=== PATIENT | female | born 1960 | race Caucasian/White ===

== ENCOUNTER 2024-09-06 20:36 | Emergency (ER) | payer MEDICARE, OTHER ==
[2024-09-06 20:57] VITALS: TEMP 97.1; O2SAT 97
--- NOTE | 2024-09-06 21:06 | ERPHSYRPT ---
- History of Present Illness Time Seen by Provider: 09/06/24 20:59 Source: patient Exam Limitations: no limitations Physician History: 63-year-old female presents to our ED for evaluation of pain to her sternum and left sided ribs. Patient states she was descending steps on her deck she missed stepped and fell onto her left side and chest area. No BHT or LOC no neck pain. Cervical spine cleared clinically. Patient's fall occurred today. The fall was mechanical and not associated with any neuro or cardiovascular symptomology. No associated chest pain or shortness of breath. No nausea vomiting or diaphoresis. No numbness tingling or weakness. Pain described as an ache that is worse with movement and palpation. Pain improved somewhat with rest. Patient declined pain medication. Patient denies abdominal pain and extremity discomfort. Patient is ambulatory with a normal gait. Patient reports she otherwise feels well. She voices no other complaints or concerns at this time. Portions of this note were created with voice recognition technology. There may be grammatical, spelling, punctuation or sound alike errors Severity: moderate Associated Symptoms: denies symptoms Allergies/Adverse Reactions: NSAIDS (Non-Steroidal Anti-Inflamma Allergy (Severe, Verified 09/06/24 21:08) Diarrhea Sulfa (Sulfonamide Antibiotics) [Sulfa(Sulfonamide Antibiotics)] Allergy (Sev ere, Verified 09/06/24 21:08) CHOLITIS Home Medications: Citalopram Hydrobromide [ceLEXa] 40 mg PO DAILY 12/19/11 [History] Cyclobenzaprine HCl 10 mg [Flexeril 10 MG] 10 mg PO BID 12/19/11 [History] Propranolol HCl [Inderal 20 MG] 20 mg PO BID 12/19/11 [History] Ranitidine HCl [zanTAC 150 MG TABLET] 150 mg PO DAILY 12/19/11 [History] azaTHIOprine [Imuran] 100 mg PO DAILY 12/19/11 [History] estradioL [Estradiol] 0.5 mg PO DAILY 12/19/11 [History] Levothyroxine Sodium 75 Mcg [Synthroid 75 Mcg] 75 mcg PO DAILY 10/13/15 [History] Oxybutynin Chloride 5 mg PO DAILY 10/13/15 [History] Hx Tetanus, Diphtheria Vaccination/Date Given: Yes Hx Influenza Vaccination/Date Given: No Hx Pneumococcal Vaccination/Date Given: No - Review of Systems Constitutional: No Symptoms, No Fever, No Chills Eyes: No Symptoms Ears, Nose, & Throat: No Symptoms Respiratory: No Symptoms, No Cough, No Dyspnea Cardiac: No Symptoms, No Chest Pain, No Edema, No Syncope Abdominal/Gastrointestinal: No Symptoms, No Abdominal Pain, No Nausea, No Vomiting, No Diarrhea Genitourinary Symptoms: No Symptoms, No Dysuria Musculoskeletal: No Symptoms, No Back Pain, No Neck Pain Skin: No Symptoms, No Rash Neurological: No Symptoms, No Dizziness, No Focal Weakness, No Sensory Changes Psychological: No Symptoms Endocrine: No Symptoms Hematologic/Lymphatic: No Symptoms Immunological/Allergic: No Symptoms All Other Systems: Reviewed and Negative - Past Medical History Pertinent Past Medical History: Yes Neurological History: Migraines ENT History: No Pertinent History Cardiac History: No Pertinent History Respiratory History: No Pertinent History Endocrine Medical History: No Pertinent History Musculoskeletal History: Osteoarthritis GI Medical History: Colitis, GERD History: No Pertinent History Psycho-Social History: Anxiety, Depression Female Reproductive Disorders: No Pertinent History - Past Surgical History Past Surgical History: Yes Neuro Surgical History: No Pertinent History Cardiac: No Pertinent History Respiratory: No Pertinent History Gastrointestinal: No Pertinent History Genitourinary: No Pertinent History Musculoskeletal: No Pertinent History Female Surgical History: Hysterectomy Other Surgical History: nasal surgery, back fx with no surgery - Social History Smoking Status: Never smoker Exposure to second hand smoke: No Drug Use: none Patient Lives Alone: Yes - Nursing Vital Signs Nursing Vital Signs: Initial Vital Signs Temperature 97.1 F 09/06/24 20:37 Pulse Rate 87 09/06/24 20:37 Respiratory Rate 18 09/06/24 20:37 O2 Sat by Pulse Oximetry 97 09/06/24 20:37 Pain Scale Pain Intensity 5 - Physical Exam General Appearance: no apparent distress, alert Eye Exam: PERRL/EOMI, eyes nml inspection Ears, Nose, Throat Exam: normal ENT inspection, TMs normal, pharynx normal, moist mucous membranes Neck Exam: normal inspection, non-tender, supple, full range of motion Respiratory Exam: normal breath sounds, lungs clear, other (Tenderness to palpation left ribs into the left anterior chest and sternum. Overlying soft tissue intact. No signs of trauma no bruising no open or draining lesions no hematomas), No respiratory distress Cardiovascular Exam: regular rate/rhythm, normal heart sounds, normal peripheral pulses Gastrointestinal/Abdomen Exam: soft, normal bowel sounds, No tenderness, No mass Back Exam: normal inspection, normal range of motion, No CVA tenderness, No vertebral tenderness Extremity Exam: normal inspection, normal range of motion, pelvis stable Neurologic Exam: alert, oriented x 3, cooperative, normal mood/affect, nml ce rebellar function, nml station & gait, sensation nml, No motor deficits Skin Exam: normal color, warm, dry, No rash Lymphatic Exam: No adenopathy SpO2: 97 - Course Nursing assessment & vital signs reviewed: Yes EKG Interpreted by Me: RATE (78), Sinus Rhythm, NORMAL AXIS, NORMAL INTERVALS, NORMAL QRS - CT Exams Chest CT Interpretation: Tele-radiologist Report (T11-T12 remote endplate fracture versus Schmorl's node. L1 vertebral hemangioma. 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 09/06/24 20:58 Active EKG-ER Only STAT Care 09/06/24 20:57 Active Pulse Oximetry (ED) STAT Care 09/06/24 20:57 Active CHEST WITHOUT CONTRAST [CT] Stat Exams 09/06/24 20:57 Taken CBC W DIFF Stat Lab 09/06/24 21:10 Completed CMP Stat Lab 09/06/24 21:10 Completed TROPONIN Q4H Lab 09/06/24 21:10 Completed TROPONIN Q4H Lab 09/07/24 01:00 Ordered TROPONIN Q4H Lab 09/07/24 05:00 Ordered Lab/Rad Data: Laboratory Result Diagrams 09/06/24 21:10 09/06/24 21:10 Laboratory Results 09/06/24 09/06/24 09/06/24 Range/Units 21:10 21:10 21:10 WBC 8.4 (3.98-10.04) x10^3/uL RBC 4.37 (3.93-5.22) x10^6/uL Hgb 12.6 (11.2-15.7) g/dL Hct 38.1 (34.1-44.9) % MCV 87.2 (79.4-94.8) fL MCH 28.8 (25.6-32.2) pg MCHC 33.1 (32.2-35.5) g/dL RDW 12.4 (11.7-14.4) % Plt Count 283 (182-369) x10^3/uL MPV 8.7 L (9.4-12.3) fL Gran % 51.8 (34.0-71.1) % Immature Gran % (Auto) 0.7 H (0.001-0.429) % Nucleat RBC Rel Count 0.0 (0.00-0.2) % Eos # (Auto) 0.49 H (0.04-0.36) x10^3/uL Immature Gran # (Auto) 0.06 H (0.001-0.031) x10^3u/L Absolute Lymphs (auto) 2.79 (1.18-3.74) x10^3/uL Absolute Monos (auto) 0.60 (0.24-0.86) x10^3/uL Absolute Nucleated RBC 0.00 (0.00-0.012) x10^3u/L Lymphocytes % 33.4 (19.3-51.7) % Monocytes % 7.2 (4.7-12.5) % Eosinophils % 5.9 H (0.7-5.8) % Basophils % 1.0 (0.1-1.2) % Absolute Granulocytes 4.34 (1.56-6.13) x10^3/uL Basophils # 0.08 (0.01-0.08) x10^3/uL Sodium 140 (135-145) mmol/L Potassium 4.1 (3.5-5.1) mmol/L Chloride 105 (98-107) mmol/L Carbon Dioxide 21 L (22-30) mmol/L Anion Gap 18.7 H (5-15) MEQ/L BUN 14 (7-17) mg/dL Creatinine 0.87 (0.52-1.04) mg/dL Estimated GFR 74.4 ML/MIN Glucose 113 H (74-106) mg/dL Calcium 9.2 (8.4-10.2) mg/dL Total Bilirubin 0.50 (0.2-1.3) mg/dL AST 38 H (14-36) U/L ALT 49 H (0-35) U/L Alkaline Phosphatase 99 (38-126) U/L Troponin I < 0.012 (0.000-0.033) ng/mL Serum Total Protein 7.3 (6.3-8.2) g/dL Albumin 4.7 (3.5-5.0) g/dL - Progress Progress: improved Progress Note: 63-year-old female presents to our ED for evaluation of pain to her left ribs anterior chest wall and sternum. Patient states she fell. Physical exam reveals tenderness to palpation at the left rib and left anterior chest. We screened patient with EKG and troponin. Both are negative. Laboratory workup essentially nonremarkable. CT chest negative for fracture dislocations. No acute pathology observed. Patient resting comfortably. Patient declined pain medication. Patient agrees to follow-up with her primary care doctor within 48 hours. Patient will be discharged to respiratory therapy as she currently has a sleep study scheduled. Plan of care discussed with patient. Patient agrees with our follow-up plans. She voices no other complaints or concerns at this time. Portions of this note were created with voice recognition technology. There may be grammatical, spelling, punctuation or sound alike errors Complexity of problem addressed is moderate acute complicated no critical care time. Complexity of data reviewed and analyzed is moderate. Test ordered chest reviewed results analyzed and correlated clinically with history and physical exam. Risk of complication and or risk of morbidity/mortality of patient management is low. Vital stable. Time spent to discharge patient is approximately 10 minutes. Plan of care established for shared decision making. No social determinants of health present to impede follow-up. Portions of this note were created with voice recognition technology. There may be grammatical, spelling, punctuation or sound alike errors 09/06/24 22:29 Counseled pt/family regarding: lab results, diagnosis, need for follow-up, rad results - Departure Departure Disposition: Home Clinical Impression: Fall, Rib contusion, Chest wall muscle strain Condition: Stable Critical Care Time: No Referrals: HARDIK CHRISTY MD [Primary Care Provider] - Follow up/PCP as directed Instructions: Preventing falls in adults Additional Instructions: Discharge/Care Plan MONTY CHAUDHARY MICHELLE was seen on 09/06/24 in the Emergency Room. The patient was counseled regarding Diagnosis,Lab results, Imaging studies, need for follow up and when to return to the Emergency Room. Prescriptions given: Discharge Note I have spoken with the patient and/or caregivers. I have explained the patient's condition, diagnosis and treatment plan based on the information available to me at this time. I have answered the patient's and/or caregiver's questions and addressed any concerns. The patient and/or caregivers have as good understanding of the patient's diagnosis, condition and treatment plan as can be expected at this point. The vital signs have been stable. The patient's condition is stable and appropriate for discharge from the emergency department. The patient will pursue further outpatient evaluation with the primary care physician or other designated or consulting physician as outlined in the discharge instructions. The patient and/or caregivers are agreeable to this plan of care and follow-up instructions have been explained in detail. The patient and/or caregivers have received these instruction. The patient/and or caregivers are aware that any significant change in condition or worsening of symptoms should prompt an immediate return to this or the closest emergency department or call 911.
[2024-09-06 21:17] LABS: Absolute Neutrophil Ct (ANC) 4.34 x10^3/uL (1.56-6.13); Basophil (Absolute #) 0.08 x10^3/uL (0.01-0.08); Eosinophil % 5.9 % (0.7-5.8); Eosinophil (Absolute #) 0.49 x10^3/uL (0.04-0.36); Hematocrit 38.1 % (34.1-44.9); Hemoglobin 12.6 g/dL (11.2-15.7); IMMATURE GRAN # 0.06 x10^3u/L (0.001-0.031); IMMATURE GRAN % 0.7 % (0.001-0.429); Lymphocyte (Absolute #) 2.79 x10^3/uL (1.18-3.74); Lymphocytes % 33.4 % (19.3-51.7); Mean Cell Volume 87.2 fL (79.4-94.8); Mean Corpuscular Hemoglobin 28.8 pg (25.6-32.2); Mean Corpuscular Hgb Concent. 33.1 g/dL (32.2-35.5); Mean Platelet Volume 8.7 fL (9.4-12.3); Monocytes % 7.2 % (4.7-12.5); Neutrophil % 51.8 % (34.0-71.1); Platelet Count 283 x10^3/uL (182-369); Red Blood Count 4.37 x10^6/uL (3.93-5.22); Red Cell Distribution Width 12.4 % (11.7-14.4); White Blood Count 8.4 x10^3/uL (3.98-10.04)
[2024-09-06 21:33] LABS: ALBUMIN 4.7 g/dL (3.5-5.0); ANION GAP 18.7 MEQ/L (5-15); BILIRUBIN,TOTAL 0.5 mg/dL (0.2-1.3); Calcium 9.2 mg/dL (8.4-10.2); Creatinine 1 0.87 mg/dL (0.52-1.04); EST GLOMERULAR FILTRATION RATE 74.4 ML/MIN; Potassium 4.1 mmol/L (3.5-5.1); Total Protein 7.3 g/dL (6.3-8.2)
[2024-09-06 21:43] VITALS: RESP 18
[2024-09-06 22:18] VITALS: BP 124/85; PULSE 78
--- NOTE | 2024-09-07 08:39 | XRAY ---
Indication: Sternum and left rib pain following fall. Multiple contiguous axial images obtained through the chest without contrast. Comparison: None Lungs inflated and clear with incidental tiny left upper lobe calcified granuloma. Heart not enlarged. Aorta is normal in course and caliber. Small left hilar calcified node. No pathologic mediastinal lymphadenopathy. Bony thorax intact with minimal/mild multilevel cervicothoracic degenerative spondylosis and small T12/L1 vertebral hemangiomas. Concaved deformities seen superior endplates T11/T12 either remote fractures versus Schmorl nodes. Limited upper abdomen unremarkable. Impression: Incidental chronic bony findings and old granulomatous disease. Remaining CT chest without contrast exam is negative.
== END 2024-09-06 22:29 | disposition home or self-care (01) ==
LOC: ED 20:36
DX: S20.212A Contusion of left front wall of thorax, initial encounter (principal); S29.011A Strain of muscle and tendon of front wall of thorax, initial encounter; W10.8XXA Fall (on) (from) other stairs and steps, initial encounter; Y92.007 Garden or yard of unspecified non-institutional (private) residence as the place of occurrence of the external cause; Z79.899 Other long term (current) drug therapy
CPT/HCPCS: 36415; 71250; 80053; 84484; 85025; 93005; 93041; 94760; 99284; 99285

== ENCOUNTER 2025-03-21 11:56 | Day surgery (SDC) | payer MEDICARE, OTHER ==
[~2025-03-21 11:56] MED LIST: Lactated Ringers 1,000 ML IV SCH
[2025-03-21 12:18] VITALS: RESP 16
[2025-03-21] MEDS: TETRACAINE 0.5% STERI-UNIT SOL OP ONE ×2 (12:28→12:44)
[2025-03-21] MEDS: Ak-Dilate OPHTHALMIC*** 0.71 ML, Cyclogyl 1% OPHTH SOL 0.71 ML, GATIFLOXACIN 0.5% OPHTH... OP SCH (12:30)
[2025-03-21 12:38] LABS: Calcium 9.2 mg/dL (8.4-10.2); Carbon Dioxide 24.0 mmol/L (22-30); Creatinine 1 0.82 mg/dL (0.52-1.04); EST GLOMERULAR FILTRATION RATE 79.3 ML/MIN; Glucose 94.0 mg/dL (74-106); Potassium 4.1 mmol/L (3.5-5.1)
[2025-03-21] MEDS ORDERED: Zofran 4 MG/2 ML VIAL IV PRN (13:00)
[2025-03-21] MEDS ORDERED: BETADINE 5% OPHTHALMIC 30 ML OP NR (13:00)
[2025-03-21] MEDS ORDERED: TRIAMCINOLONE 15 MG/ML INJ INTRAOP NR (13:00)
[2025-03-21] MEDS ORDERED: Epinephrine Preservative Free 1 MG/ML INTRAOP NR (13:00)
[2025-03-21] MEDS ORDERED: DEXMEDETOMIDINE 80 MCG/20ML-NS IV NR (13:00)
[2025-03-21] MEDS ORDERED: VIGAMOX/BSS 0.15% SYR IO NR (13:00)
[2025-03-21] MEDS ORDERED: propofoL IV ONE ×3 (14:17→14:36)
[2025-03-21 15:01] VITALS: BP 126/72; PULSE 72; TEMP 97.7; O2SAT 96
== END 2025-03-21 15:05 | disposition home or self-care (01) ==
LOC: SDC 11:56
PROVIDERS: ATTEND Ophthalmology
DX: H25.812 Combined forms of age-related cataract, left eye (principal); I10 Essential (primary) hypertension; E78.5 Hyperlipidemia, unspecified

== ENCOUNTER 2025-04-25 07:23 | Day surgery (SDC) | payer MEDICARE, OTHER ==
[2025-04-25] MEDS ORDERED: Lactated Ringers 1,000 ML IV ONE (07:38)
[2025-04-25] MEDS: Lactated Ringers 1,000 ML IV SCH (07:39)
[2025-04-25] MEDS: TETRACAINE 0.5% STERI-UNIT SOL OP ONE ×2 (07:44→07:59)
[2025-04-25] MEDS: Ak-Dilate OPHTHALMIC*** 0.71 ML, Cyclogyl 1% OPHTH SOL 0.71 ML, GATIFLOXACIN 0.5% OPHTH... OP SCH (07:45)
[2025-04-25 07:53] VITALS: RESP 18
[2025-04-25 08:07] LABS: Calcium 9.1 mg/dL (8.4-10.2); Carbon Dioxide 22.0 mmol/L (22-30); Creatinine 1 0.78 mg/dL (0.52-1.04); EST GLOMERULAR FILTRATION RATE 84.2 ML/MIN; Glucose 106.0 mg/dL (74-106); Potassium 4.1 mmol/L (3.5-5.1)
[2025-04-25] MEDS ORDERED: Zofran 4 MG/2 ML VIAL IV PRN (09:30)
[2025-04-25] MEDS ORDERED: TRIAMCINOLONE 15 MG/ML INJ INTRAOP NR (09:30)
[2025-04-25] MEDS ORDERED: DEXTENZA OP NR (09:30)
[2025-04-25] MEDS ORDERED: BETADINE 5% OPHTHALMIC 30 ML OP NR (09:30)
[2025-04-25] MEDS ORDERED: DEXMEDETOMIDINE 80 MCG/20ML-NS IV NR (09:30)
[2025-04-25] MEDS ORDERED: VIGAMOX/BSS 0.15% SYR IO NR (09:30)
[2025-04-25] MEDS ORDERED: OMIDRIA 1-0.3% VIAL IO NR (09:30)
[2025-04-25] MEDS ORDERED: propofoL IV ONE ×2 (09:36→09:45)
[2025-04-25] MEDS ORDERED: SUBLIMAZE 100 MCG/2 ML ONE (09:43)
[2025-04-25 10:17] VITALS: BP 131/70; PULSE 67; TEMP 97; O2SAT 96
== END 2025-04-25 10:24 | disposition home or self-care (01) ==
LOC: SDC 07:23
PROVIDERS: ATTEND Ophthalmology
DX: H25.811 Combined forms of age-related cataract, right eye (principal)